=== PATIENT | female | born 1945 | race American Indian/Alaskan Native ===

== ENCOUNTER 2018-09-22 23:47 | Emergency (ER) | payer MEDICARE ==
[2018-09-23 00:17] VITALS: BP 137/68
--- NOTE | 2018-09-23 01:21 | XRay Report ---
FINAL REPORT EXAM: XR HIPS BILAT 2V W/PELVIS HISTORY: S/P fall B/L hip pain TECHNIQUE: An AP view of the pelvis was obtained along with two views of the right hip and a frogleg view of the left hip. FINDINGS: There is osteoporosis. On the AP view of the pelvis there is a questionable radiolucency in the subcapital portion of the proximal left femur. With this is an artifact or nondisplaced fracture is uncertain. It is not seen on the frog-leg view. There is moderate to severe narrowing of the left hip joint space the bony pelvic ring appears intact. The right hip reveal severe end-stage arthritic changes with severe narrowing of the hip joint space and remodeling of the acetabulum and femoral head. There is no fracture. The soft tissues reveal 4.6 cm calcified fibroid in the pelvis. The SI joints appear normal. There are arthritic changes in the lower lumbar spine. IMPRESSION: Questionable subcapital fracture of the proximal left femur versus artifact. Computed tomography is recommended for further evaluation. Severe end-stage arthritic changes the right hip joint
[2018-09-23] MEDS ORDERED: ZOFRAN IV ONE (03:34)
[2018-09-23] MEDS ORDERED: MORPHINE IV ONE (03:34)
[2018-09-23 04:03] LABS: Basophils % (Auto) 1.1 % (0.0-1.8); Eosinophils # (Auto) 0.2 K/mm3 (0.0-0.4); Eosinophils % (Auto) 3.4 % (0.0-4.3); Hematocrit 36.2 % (30.3-42.9); Hemoglobin 11.6 gm/dl (10.1-14.3); Lymphocytes # (Auto) 1.1 K/mm3 (1.2-5.4); Lymphocytes % (Auto) 23.7 % (13.4-35.0); Mean Corpuscular HGB Conc 32 % (30-34); Mean Corpuscular Hemoglobin 27 pg (28-32); Mean Corpuscular Volume 83 fl (79-97); Monocytes # (Auto) 0.5 K/mm3 (0.0-0.8); Monocytes % (Auto) 10.1 % (0.0-7.3); Platelet Count 190 K/mm3 (140-440); Red Blood Count 4.35 M/mm3 (3.65-5.03); Red Cell Distribution Width 16.9 % (13.2-15.2)
--- NOTE | 2018-09-23 07:43 | Cat Scan Report ---
FINAL REPORT EXAM: CT ABDOMEN PELVIS WO CON HISTORY: questionable hip fracture TECHNIQUE: Routine axial imaging was obtained of the abdomen and pelvis without oral or IV contrast. Sagittal and coronal reconstructions were reviewed. FINDINGS: There is severe bilateral arthritic changes of both hip joints, right side worse than left side. There is no evidence of hip fracture bilaterally. There is multilevel disc degeneration in the lumbar spine with a levoscoliosis. There is multilevel spinal stenosis changes in the lower lumbar spine. There is no evidence of acute fracture. The lung bases do not show infiltrates or effusions. The liver, gallbladder, pancreas, and spleen appear normal. The adrenal glands appear normal. The kidneys show no evidence hydronephrosis. There calcification of the abdominal aorta. The bowel loops are normal in caliber. There is a large amount retained feces in the colon. There are uncomplicated diverticula in the right side of the colon. There no evidence of free fluid or adenopathy. In the pelvis there are multiple calcifications in the uterus the largest measuring 4.5 cm in diameter compatible with involuted fibroids. The bladder appears normal. IMPRESSION: Severe arthritic changes of both hip joints as described. No evidence of hip fracture. Levoscoliosis with multilevel severe arthritic changes in the lumbar spine No acute process within the abdomen and pelvis. Involuted calcified fibroids in the uterus. Uncomplicated diverticula in the ascending colon.
[2018-09-23 07:48] LABS: Alanine Aminotransferase 7 units/L (7-56); Albumin 4.4 g/dL (3.9-5); BUN/Creatinine Ratio 23; Blood Urea Nitrogen 14 mg/dL (7-17); Calcium 9.6 mg/dL (8.4-10.2); Hemolysis Index 5; INR 0.94 (0.87-1.13); Partial Thromboplastin Time 28.3 Sec. (24.2-36.6)
== END 2018-09-23 07:35 | disposition home or self-care (01) ==
LOC: ED 23:47
DX: M25.551 Pain in right hip (principal); M25.552 Pain in left hip; W18.30XA Fall on same level, unspecified, initial encounter; Y93.89 Activity, other specified; Y92.89 Other specified places as the place of occurrence of the external cause; Y99.8 Other external cause status
CPT/HCPCS: 36415; 73521; 74176; 80053; 85025; 85610; 85730; 99285; J2270; J2405

== ENCOUNTER 2018-11-08 06:14 | Emergency (ER) | payer MEDICARE ==
--- NOTE | 2018-11-08 07:25 | Emergency Department Report ---
ED General Adult HPI - General Chief complaint: Pain General Stated complaint: PAIN ALL OVER Time Seen by Provider: 11/08/18 07:11 Source: EMS Mode of arrival: Stretcher Limitations: Physical Limitation - History of Present Illness Initial comments: This is a 72 year old female with chronic osteonecrosis of the right hip. She has repetitive visits to the emergency department with request for pain medication. She took an ambulance to the emergency department today seeking chronic pain management. She has not seen the orthopedic doctor. Apparently she must have a history of mental health issues/dementia with an allergy to Haldol. She is not complaining of any acute problem. She has had no fall. She states that she uses a walker at home. He has been previously referred to orthopedics several times in the past. She tells me that she does not know how to get an appointment at the same time that she states that she hasn't appointment coming up. -: month(s) Location: right, lower extremity Radiation: non-radiation Quality: aching Consistency: intermittent Improves with: none Worsens with: movement Associated Symptoms: denies other symptoms - Related Data Previous Rx's Medication Instructions Recorded Last Taken Type Ibuprofen [Motrin] 600 mg PO Q8H PRN #20 tablet 10/05/18 Unknown Rx HYDROcodone/ACETAMINOPHEN [[place] 1 each PO Q6HR #20 tablet 10/21/18 Unknown Rx 5-325 Tablet] traMADol [Ultram 50 MG tab] 50 mg PO Q6HR PRN #14 tablet 11/08/18 Unknown Rx Allergies Allergy/AdvReac Type Severity Reaction Status Date / Time haloperidol [From Haldol] Allergy Swelling Verified 09/23/18 00:17 ED Review of Systems ROS: Stated complaint: PAIN ALL OVER Other details as noted in HPI Constitutional: denies: chills, fever Eyes: denies: eye pain, eye discharge, vision change ENT: denies: ear pain, throat pain Respiratory: denies: cough, shortness of breath, wheezing Cardiovascular: denies: chest pain, palpitations Endocrine: no symptoms reported Gastrointestinal: denies: abdominal pain, nausea, diarrhea Genitourinary: denies: urgency, dysuria, discharge Musculoskeletal: as per HPI, arthralgia. denies: back pain, joint swelling Skin: denies: rash, lesions Neurological: denies: headache, weakness, paresthesias Psychiatric: denies: anxiety, depression Hematological/Lymphatic: denies: easy bleeding, easy bruising ED Past Medical Hx - Past Medical History Hx Hypertension: Yes Hx Diabetes: Yes Hx Arthritis: Yes Hx Dementia: Yes Additional medical history: fX X 2 right hip, and bone on bone - Surgical History Additional Surgical History: Heart stents. hemorroid - Social History Smoking Status: Unknown if ever smoked Substance Use Type: None - Medications Home Medications: Home Medications Medication Instructions Recorded Confirmed Last Taken Type Ibuprofen [Motrin] 600 mg PO Q8H PRN #20 tablet 10/05/18 Unknown Rx HYDROcodone/ACETAMINOPHEN [[place] 1 each PO Q6HR #20 tablet 10/21/18 Unknown Rx 5-325 Tablet] traMADol [Ultram 50 MG tab] 50 mg PO Q6HR PRN #14 tablet 11/08/18 Unknown Rx ED Physical Exam - General Limitations: Physical Limitation General appearance: alert, in no apparent distress - Head Head exam: Present: atraumatic, normocephalic - Eye Eye exam: Present: normal appearance. Absent: scleral icterus - ENT ENT exam: Present: mucous membranes moist - Neck Neck exam: Present: normal inspection - Respiratory Respiratory exam: Present: normal lung sounds bilaterally. Absent: respiratory distress - Cardiovascular Cardiovascular Exam: Present: regular rate, normal rhythm. Absent: systolic murmur, diastolic murmur, rubs, gallop - GI/Abdominal GI/Abdominal exam: Present: soft, normal bowel sounds. Absent: distended, tenderness, guarding, rebound, rigid - Extremities Exam Extremities exam: Present: normal inspection. Absent: full ROM (patient has limited range of motion which is somewhat painful. There is no shortening or rotation.), normal capillary refill, pedal edema, joint swelling, calf tend erness - Back Exam Back exam: Present: normal inspection - Neurological Exam Neurological exam: Present: alert, oriented X3 - Psychiatric Psychiatric exam: Present: normal affect, normal mood - Skin Skin exam: Present: warm, dry, intact, normal color. Absent: rash ED Course Vital Signs 11/08/18 06:17 Temperature 98.0 F Pulse Rate 73 Respiratory 16 Rate Blood Pressure 160/91 O2 Sat by Pulse 98 Oximetry - Reevaluation(s) Reevaluation #1: The patient has had multiple CTs and x-rays of her right hip. She has known osteonecrosis with collapse. She needs orthopedic evaluation for appropriateness of elective hip replacement. I am not certain if this is pending. We are going to give the patient something for pain at her request now. I am going to order a case management consult for home evaluation and coordination of her care with the orthopedic physician/primary care. 11/08/18 07:24 Critical care attestation.: If time is entered above; I have spent that time in minutes in the direct care of this critically ill patient, excluding procedure time. ED Disposition Clinical Impression: Chronic right hip pain, Osteonecrosis of right hip Disposition: - TO HOME OR SELFCARE Is pt being admited?: No Does the pt Need Aspirin: No Condition: Stable Instructions: Arthralgia (ED) Additional Instructions: Treatment for your problem is orthopedic. The orthopedic doctor may recommend a hip replacement. This cannot be done through the emergency department. This must be done through the orthopedic office. I can give you something for pain. However chronic pain management must be through a primary care physician. I am going to give you information about a primary care physician/clinic as well as the orthopedic doctor. I am going to ask case management to come to her home to assist you with these problems. Prescriptions: traMADol [Ultram 50 MG tab] 50 mg PO Q6HR PRN #14 tablet PRN Reason: Pain Referrals: CINTHYA BOLTON MD [Primary Care Provider] - 3-5 Days FABY NGO MD [Staff Physician] - 2-3 Days [facility] [Provider Group] - 2-3 Days Time of Disposition: 07:26
[2018-11-08] MEDS ORDERED: NORCO 5/325 PO ONE (07:28)
[2018-11-08 09:38] VITALS: BP 155/70
== END 2018-11-08 09:39 | disposition home or self-care (01) ==
LOC: ED 06:14
DX: M87.9 Osteonecrosis, unspecified (principal); M25.551 Pain in right hip; G89.29 Other chronic pain

== ENCOUNTER 2018-11-17 23:26 | Emergency (ER) | payer MEDICARE ==
[2018-11-17 23:57] VITALS: BP 150/88
[2018-11-17] MEDS ORDERED: PERCOCET 5/325 PO ONE (23:59)
[2018-11-17] MEDS ORDERED: IBUPROFEN PO ONE (23:59)
--- NOTE | 2018-11-18 00:03 | Emergency Department Report ---
ED General Adult HPI - General Chief complaint: Extremity Injury, Lower Stated complaint: RIGHT HIP PAIN Time Seen by Provider: 11/17/18 23:54 Source: patient, EMS (ems notes not available at time of chart dictation) Mode of arrival: Stretcher Limitations: Physical Limitation - History of Present Illness Initial comments: This is a 72-year-old female with a history of severe osteonecrosis of the right hip, has presents to this department multiple times with chronic right-sided hip pain, who presents today with a recurrent complaint of nontraumatic right-sided hip pain. Pain is sharp, increases with palpation and decreases with rest. There is no trauma. The pain does not radiate anywhere. The patient reports no headache, neck pain, chest pain, abdominal pain, shortness of breath, focal extremity weakness or urinary symptoms. In the past, she has been seen for similar symptoms, and was referred to outpatient orthopedic surgery, and appar ently even had a case management consult requested. -: Gradual, week(s), month(s) Location: right, lower extremity Radiation: non-radiation Severity scale (0 -10): 10 Quality: aching Consistency: intermittent Improves with: movement, rest Associated Symptoms: denies other symptoms - Related Data Previous Rx's Medication Instructions Recorded Last Taken Type Ibuprofen [Motrin] 600 mg PO Q8H PRN #20 tablet 10/05/18 Unknown Rx HYDROcodone/ACETAMINOPHEN [[place] 1 each PO Q6HR #20 tablet 10/21/18 Unknown Rx 5-325 Tablet] Ibuprofen [Motrin 400 MG tab] 400 mg PO ONCE PRN #20 tablet 11/18/18 Unknown Rx traMADol [Ultram 50 MG tab] 50 mg PO Q6HR PRN #14 tablet 11/18/18 Unknown Rx Allergies Allergy/AdvReac Type Severity Reaction Status Date / Time haloperidol [From Haldol] Allergy Swelling Verified 09/23/18 00:17 ED Review of Systems ROS: Stated complaint: RIGHT HIP PAIN Other details as noted in HPI Constitutional: denies: fever Eyes: denies: eye discharge ENT: denies: epistaxis Respiratory: denies: cough Cardiovascular: denies: chest pain Gastrointestinal: denies: abdominal pain Musculoskeletal: arthralgia, myalgia Neurological: denies: weakness ED Past Medical Hx - Past Medical History Previous Medical History?: Yes Hx Hypertension: Yes Hx Diabetes: Yes Hx Arthritis: Yes Hx Dementia: Yes Additional medical history: fX X 2 right hip, and bone on bone - Surgical History Past Surgical History?: Yes Additional Surgical History: Heart stents. hemorroid - Social History Smoking Status: Current Every Day Smoker Substance Use Type: Prescribed - Medications Home Medications: Home Medications Medication Instructions Recorded Confirmed Last Taken Type Ibuprofen [Motrin] 600 mg PO Q8H PRN #20 tablet 10/05/18 Unknown Rx HYDROcodone/ACETAMINOPHEN [[place] 1 each PO Q6HR #20 tablet 10/21/18 Unknown Rx 5-325 Tablet] Ibuprofen [Motrin 400 MG tab] 400 mg PO ONCE PRN #20 tablet 11/18/18 Unknown Rx traMADol [Ultram 50 MG tab] 50 mg PO Q6HR PRN #14 tablet 11/18/18 Unknown Rx ED Physical Exam - General Limitations: Physical Limitation General appearance: alert, anxious - Head Head exam: Present: atraumatic, normocephalic - Eye Eye exam: Present: normal appearance, EOMI. Absent: nystagmus - ENT ENT exam: Present: normal exam, normal orophraynx, mucous membranes moist, normal external ear exam - Neck Neck exam: Present: normal inspection, full ROM. Absent: tenderness, meningismus - Respiratory Respiratory exam: Present: normal lung sounds bilaterally. Absent: respiratory distress - Cardiovascular Cardiovascular Exam: Present: regular rate, normal rhythm, normal heart sounds. Absent: bradycardia, tachycardia, irregular rhythm, systolic murmur, diastolic murmur, rubs, gallop - GI/Abdominal GI/Abdominal exam: Present: soft. Absent: distended, tenderness, guarding, rebound, rigid, pulsatile mass - Extremities Exam Extremities exam: Present: normal inspection, tenderness (the right hip is tender to touch on the iliac crest. There is no redness, pus or streaking.), other (2+ pulses noted in the bilateral upper, lower extremities. Compartments soft. No long bony tenderness. The pelvis is stable.). Absent: pedal edema, joint swelling, calf tenderness - Back Exam Back exam: Present: normal inspection, full ROM. Absent: tenderness, CVA tenderness (R), paraspinal tenderness, vertebral tenderness - Neurological Exam Neurological exam: Present: alert, other (Extraocular movements intact. Tongue midline. No facial droop. Facial sensation intact to light touch in the V1, V2, V3 distribution bilaterally. 5 and 5 strength in 4 extremities.. Sensation is intact to light touch in 4 extremities.). Absent: motor sensory deficit - Psychiatric Psychiatric exam: Present: normal affect, normal mood - Skin Skin exam: Present: warm, dry, intact, normal color. Absent: rash ED Course Vital Signs 11/17/18 23:45 Temperature 98.1 F Pulse Rate 84 Respiratory 15 Rate Blood Pressure 150/88 Blood Pressure 150/88 [Left] O2 Sat by Pulse 100 Oximetry ED Medical Decision Making - Lab Data Vital Signs 11/17/18 23:45 Temperature 98.1 F Pulse Rate 84 Respiratory 15 Rate Blood Pressure 150/88 Blood Pressure 150/88 [Left] O2 Sat by Pulse 100 Oximetry - Radiology Data Radiology results: report reviewed, image reviewed Prior imaging studies reviewed - Medical Decision Making Differential diagnosis, including but not limited to: Arthritis, hip pain, osteonecrosis Assessment and plan: 72-year-old female with recurrent complaint of nontraumatic right-sided hip pain, has been evaluated for this complaint multiple times in the past, has been referred to outpatient orthopedic surgery. She is afebrile with reassuring vital signs. There is no redness, pus or streaking or tense compartments over the right hip. Patient reports that she has an orthopedic appointment in the morning at [facility]. We will treat the patient's pain, disch arged with pain medication, or to case management evaluation, and instruct the patient to follow up with outpatient orthopedic surgery. Critical care attestation.: If time is entered above; I have spent that time in minutes in the direct care of this critically ill patient, excluding procedure time. ED Disposition Clinical Impression: Chronic right hip pain Disposition: - TO HOME OR SELFCARE Is pt being admited?: No Does the pt Need Aspirin: No Condition: Stable Instructions: Arthralgia (ED) Additional Instructions: The patient has chronic right-sided hip arthritis, which needs follow-up with an orthopedic surgeon and a probable hip replacement. Hip replacement cannot be performed in the emergency room. Please continue current outpatient medications, and follow-up with an orthopedic surgeon as soon as possible to arrange outpatient evaluation. Dr. Thurston is a local orthopedic surgeon. [facility]. Please return to the ER right away with new pain, worsened pain, migration of pain, projectile vomiting, change in mental status, confusion, inability to speak, inability to breathe, new, worsening or different symptoms. Referrals: FABY THURSTON MD [Staff Physician] - 3-5 Days [facility] [Provider Group] - 3-5 Days
== END 2018-11-18 01:45 | disposition home or self-care (01) ==
LOC: ED 23:26
DX: G89.29 Other chronic pain (principal); M25.551 Pain in right hip; I10 Essential (primary) hypertension; E11.9 Type 2 diabetes mellitus without complications; M19.90 Unspecified osteoarthritis, unspecified site; F17.200 Nicotine dependence, unspecified, uncomplicated; Z88.8 Allergy status to other drugs, medicaments and biological substances
CPT/HCPCS: 99283